=== PATIENT | male | born 1940 | race Caucasian/White ===

== ENCOUNTER 2016-06-13 09:10 | Inpatient (IN) | payer OTHER ==
[~2016-06-13] VITALS: Ht 170.2 cm; Wt 90.3 kg
[~2016-06-13 09:10] MED LIST: ADULT LOW DOSE81 M1 PO; ASPIR 8181 M1 PO; Aspirin E.C. PO; BALANCE PO; BEE POLLEN500 MG PO; Colace PO; DIFLUNISAL500 MG PO; DOLOBID500 MG PO; ENDOCET 5-3251 EACH PO; FISH OIL 1,2001 EAC3 PO; Flexeril PO; LISINOPRIL2.5 MG PO; LOPRESSOR25 MG; Lopressor PO; METOPROLOL SUCC25 MG PO; MULTIPLE VITAM1 EACH PO; Percocet 5/325,Endoc PO; RED YEAST RICE600 M1 PO; RED YEAST RICE600 MG PO; VITAMIN C500 M1 PO; Vibramycin, Doryx PO; Vitamin B Complex PO; ZANTAC300 MG PO; ZESTRIL,PRINIV2.5 MG PO; Zestril,Prinivil PO; [UNRECOGNIZED DRUG - CODE] PO; [UNRECOGNIZED DRUG - OTHER] PO; [UNRECOGNIZED DRUG - OTHER] PO; [UNRECOGNIZED DRUG - OTHER] PO; [UNRECOGNIZED DRUG - OTHER] PO
[2016-06-13 09:42] LABS: EOSINOPHIL (%) 2.4 % (0-5); EOSINOPHIL COUNT 0.2 K/uL (0-0.3); HEMATOCRIT 44.7 % (38.0-50.0); IMMATURE GRANULOCYTE (%) 0.8 % (0.0-0.7); IMMATURE GRANULOCYTE COUNT 0.1 K/uL; INSTRUMENT ABS NEUTROPHIL CT 4.5 K/uL; LYMPHOCYTE COUNT 1.9 K/uL (1.0-2.8); MCH 29.8 PG (29.0-34.0); MCHC 33.8 G/DL (30.0-36.0); MCV 88.2 FL (86-99); MEAN PLAT.VOLUME 8.9 uM^3 (9.0-12.4); MONOCYTE (%) 9.9 % (3-12); MONOCYTE COUNT 0.7 K/uL (0-0.8); NEUTROPHIL (%) 60.6 % (45-76); NEUTROPHIL COUNT 4.5 K/uL (1.8-6.4); PLATELET COUNT 283 K/uL (156-360); RBC DIS.WIDTH-CV 13.2 % (11.8-14.6); RBC DIS.WIDTH-SD 42.5 % (39-53); RED BLOOD COUNT 5.07 M/uL (4.00-5.50); WHITE BLOOD COUNT 7.5 K/uL (4.1-10.2)
[2016-06-13 09:50] LABS: PROTHROMBIN TIME 10.4 (9.2-11.2); PTT 28.5 (25-32)
[2016-06-13 09:51] LABS: CHLORIDE 106 mEq/L (99-109); POTASSIUM 4.2 mEq/L (3.7-5.4); SODIUM 139 mEq/L (136-147)
[2016-06-13 09:53] LABS: GLUCOSE 96 mg/dL (70-99)
[2016-06-13 09:54] LABS: ANION GAP 12 MEQ/L (2-14)
[2016-06-13 09:57] LABS: GFR ESTIMATE (CALCULATED) > 59 mL/min/; UREA NITROGEN (BUN) 17 mg/dL (9-23)
[2016-06-13 10:12] LABS: HDL CHOLESTEROL 59 MG/DL (Desirable>=40); LDL CHOLESTEROL 154 mg/dL (Desirable<100); NON-HDL CHOLESTEROL 175 mg/dL (Desirable<160); TOTAL CHOLESTEROL 234 mg/dL (Desirable<200); TRIGLYCERIDES 107 MG/DL (Normal: <150)
[2016-06-13 10:52] LABS: Estimated Average Glucose 123 mg/dL (70-123); HEMOGLOBIN A1c (GLYCOHEMOGLOB) 5.9 % HGB (Below 5.7)
[2016-06-13] MEDS ORDERED: LO-DOSE ASPIRIN81 M2 PO (11:21)
[2016-06-13] MEDS ORDERED: ZESTRIL2.5 MG PO (11:21)
[2016-06-13] MEDS ORDERED: B COMPLETE1 EACH PO (11:22)
[2016-06-13] MEDS ORDERED: TUMERIC PO (11:24)
[2016-06-13] MEDS ORDERED: CO Q-10 RED YE1 EACH PO (11:24)
[2016-06-13] MEDS ORDERED: GREEN TEA1 CAPSULE PO (11:24)
[2016-06-13 14:10] LABS: TROP-I INTERPRETATION NEGATIVE; TROPONIN-I < 0.01 ng/mL (0.0-0.30)
[2016-06-13 16:48] VITALS: BP 133/90
[2016-06-13 19:27] LABS: TROP-I INTERPRETATION NEGATIVE; TROPONIN-I < 0.01 ng/mL (0.0-0.30)
[2016-06-13 19:47] VITALS: BP 128/74
[2016-06-14] VITALS: BP 158/76
[2016-06-14 03:54] VITALS: BP 156/89
[2016-06-14 07:39] VITALS: BP 136/80
[2016-06-14] MEDS ORDERED: LO-DOSE ASPIRIN81 M2 PO (11:33)
== END 2016-06-14 12:06 | disposition home or self-care (01) | DRG 65 ==
LOC: EME 09:10 → EDOF 11:44 → 5SOUTH 11:44
PROVIDERS: Emergency Medicine; Internal Medicine
DX: I63.9 Cerebral infarction, unspecified (principal); G81.91 Hemiplegia, unspecified affecting right dominant side; R20.9 Unspecified disturbances of skin sensation; N28.1 Cyst of kidney, acquired; M43.17 Spondylolisthesis, lumbosacral region; R13.10 Dysphagia, unspecified; E85.8 Other amyloidosis; G62.9 Polyneuropathy, unspecified; I65.21 Occlusion and stenosis of right carotid artery; M48.07 Spinal stenosis, lumbosacral region; G47.30 Sleep apnea, unspecified; Z86.73 Personal history of transient ischemic attack (TIA), and cerebral infarction without residual deficits
CPT/HCPCS: 70450; 70496; 70498; 70551; 72131; 80048; 80061; 83036; 84484; 85025; 85610; 85651; 85730; 92610 GN; 93005; 93306; 99281; 99285; J1650; J7030; J7042; S0028